=== PATIENT | male | born 1950 | race Caucasian/White ===

== ENCOUNTER → 2020-06-20 | Outpatient (CLI) | payer MEDICARE ==
[~2020-06-20] MED LIST: BENZ100A PO; ESCI20 PO; METO25; PARO20 PO; SIMV10 PO; Zithromax250 MG PO
== END | disposition home or self-care (01) ==
LOC: PLD 14:42 → LAB SHORT 14:42
DX: D04.62 Carcinoma in situ of skin of left upper limb, including shoulder (principal)
CPT/HCPCS: 88305

== ENCOUNTER 2020-12-05 05:44 | Day surgery (SDC) | payer MEDICARE ==
[~2020-12-05] VITALS: Ht 175.3 cm; Wt 94.0 kg
[2020-12-05] MEDS ORDERED: BUSP5 PO (06:29)
[2020-12-05] MEDS ORDERED: ZOLP5 PO (06:29)
[2020-12-05] MEDS ORDERED: TIOT18 INH (06:29)
[2020-12-05] MEDS ORDERED: DEPO-TESTO200 MG/1 M IM (06:30)
--- NOTE | 2020-12-05 10:25 | NUR ---
PT DRESSED SELF WITHOUT ISSUE, SITE UNCHANGED WITH ACTIVITY; IV REMOVED-CANNULA INTACT.
--- NOTE | 2020-12-05 10:30 | NUR ---
PT RECEIVED DISCHARGE INSTRUCTIONS, MED LIST AND AFTER CARE INSTRUCTIONS; VEBALIZED GOOD UNDERSTANDING. PT LEFT FACILITY VIA W/C, CONDITION STABLE.
== END 2020-12-05 10:30 | disposition home or self-care (01) ==
LOC: MHTC 05:44
DX: Z45.02 Encounter for adjustment and management of automatic implantable cardiac defibrillator (principal); I49.01 Ventricular fibrillation; I49.3 Ventricular premature depolarization; I45.10 Unspecified right bundle-branch block; I10 Essential (primary) hypertension; E78.5 Hyperlipidemia, unspecified; G47.33 Obstructive sleep apnea (adult) (pediatric); J44.9 Chronic obstructive pulmonary disease, unspecified; F32.9 Major depressive disorder, single episode, unspecified; F17.200 Nicotine dependence, unspecified, uncomplicated; Z87.81 Personal history of (healed) traumatic fracture; Z88.7 Allergy status to serum and vaccine
CPT/HCPCS: 33263; 99152; 99153; C1722; J0690; J1644; J2250; J3010; J7030; J7040

== ENCOUNTER → 2021-07-01 | Outpatient (CLI) | payer MEDICARE ==
[~2021-07-01] MED LIST changes: +BUSP5 PO; +DEPO-TESTO200 MG/1 M IM; +TIOT18 INH; +ZOLP5 PO
== END | disposition home or self-care (01) ==
LOC: LAB SHORT 14:42 → LAB 14:42
DX: D23.5 Other benign neoplasm of skin of trunk (principal)
CPT/HCPCS: 88305

== ENCOUNTER 2023-02-25 21:06 | Emergency (ER) | payer MEDICARE ==
[~2023-02-25] VITALS: Ht 175.3 cm; Wt 86.2 kg
[2023-02-25 21:32] LABS: BASOPHILS ABSOLUTE AUTO 0.05 K/mm3 (0.00-0.23); BASOPHILS PERCENT AUTO 1 % (0-2); EOSINOPHILS PERCENT AUTO 0 % (0-6); Hematocrit 49.4 % (37.0-53.0); Hemoglobin 16.8 g/dL (13.5-17.5); IMMATURE GRAN ABSOLUTE AUTO 0.04 K/mm3 (0.00-0.10); IMMATURE GRAN PERCENT AUTO 0 % (0-1); LYMPHOCYTES ABSOLUTE AUTO 0.44 K/mm3 (0.84-5.20); LYMPHOCYTES PERCENT AUTO 5 % (21-46); MONOCYTES ABSOLUTE AUTO 0.85 K/mm3 (0.16-1.47); MONOCYTES PERCENT AUTO 9 % (4-13); Mean Corpuscular HGB 30.9 pg (26.0-34.0); Mean Corpuscular Volume 91 fL (80-100); Mean Platelet Volume 9.7 fL (9.1-12.4); NEUTROPHILS ABSOLUTE AUTO 7.71 K/mm3 (1.96-9.15); NEUTROPHILS PERCENT AUTO 85 % (41-73); Platelet Count 187 K/mm3 (150-400); RDW Coefficient Variation 13.4 % (11.7-14.2); RDW Standard Deviation 45.1 fL (35.1-46.3); Red Blood Cell Count 5.43 M/mm3 (4.30-5.90); White Blood Cell Count 9.09 K/mm3 (4.00-11.30)
[2023-02-25 21:51] LABS: Albumin, Blood 3.8 g/dL (3.4-5.0); Albumin/Globulin Ratio 1.1 (0.8-1.8); Bilirubin, Total 0.9 mg/dL (0.1-1.0); Bun/Creatinine Ratio 7.4 (12.0-20.0); Calcium, Blood 8.9 mg/dL (8.5-10.1); Creatinine, Blood 1.36 mg/dL (0.60-1.20); Globulin, Blood 3.4 g/dL (2.2-4.0); Total Protein, Blood 7.2 g/dL (6.4-8.2)
[2023-02-25] MEDS ORDERED: FLOMAX0.4 MG PO (22:06)
[2023-02-25 22:09] LABS: Influenza B, PCR NEGATIVE (NEGATIVE); Resp Syncytial Virus, PCR NEGATIVE (NEGATIVE)
[2023-02-26 00:28] LABS: Influenza A, PCR POSITIVE (NEGATIVE)
[2023-02-26 00:30] LABS: SARS-Cov-2 (COVID-19) PCR, MMC POSITIVE (NEGATIVE)
[2023-02-26] MEDS ORDERED: BENZ100A PO (00:46)
[2023-02-26 01:15] VITALS: BP 121/50
== END 2023-02-26 01:16 | disposition home or self-care (01) ==
LOC: ER 21:06
PROVIDERS: Emergency Medicine
DX: U07.1 COVID-19 (principal); J10.1 Influenza due to other identified influenza virus with other respiratory manifestations; J44.9 Chronic obstructive pulmonary disease, unspecified; Z88.7 Allergy status to serum and vaccine; Z79.899 Other long term (current) drug therapy; G47.30 Sleep apnea, unspecified; F17.210 Nicotine dependence, cigarettes, uncomplicated
CPT/HCPCS: 0241U; 36415; 71046; 80053; 83605; 84484; 85025; 93005; 93010; 99284-25

== ENCOUNTER → 2024-06-07 | Outpatient (CLI) | payer MEDICARE ==
[~2024-06-07] MED LIST changes: +FLOMAX0.4 MG PO
== END ==
LOC: LAB SHORT 14:35 → LAB 14:35
DX: N39.0 Urinary tract infection, site not specified (principal)
CPT/HCPCS: 87086